=== PATIENT | female | born 2000 | race African-American/Black ===

== ENCOUNTER 2021-06-14 00:32 | Emergency (ER) | payer OTHER, SELFPAY ==
[2021-06-14 00:35] VITALS: BP 127/77; PULSE 102; RESP 16; TEMP 36.3; O2SAT 100; BMI 20.1
--- NOTE | 2021-06-14 00:49 | EX.ED.DYSGE1 ---
HPI History of Present Illness Chief Complaint: ETOH Intox Informant: patient Narrative Narrative: Patient's states she drank a lot tonight. It was mostly vodka. She threw up. She feels fine now. She no longer feels nauseated. She knows where she is at. She denies any fall or injury. She she has no complaint at this time. Denies anyone being inappropriate or touching her. She denies passing out. [facility] Medical History ADHD Home Medications methylphenidate HCl [Ritalin] 10 mg PO DAILY 06/14/21 [History Last Taken Unknown] Allergy/AdvReac Type Severity Reaction Status Date / Time No Known Allergies Allergy Verified 06/14/21 00:33 Social History Smoking Status: Never smoker ROS ROS ED Constitutional Constitutional ED: Denies chills or fever(s) Eyes Eyes: Denies blurry vision ENT ENT ED: Denies rhinorrhea or sore throat Cardiovascular Cardiovascular: Denies chest pain or palpitations Respiratory/Chest Respiratory/Chest: Denies cough or dyspnea Gastrointestinal Gastrointestinal: Reports nausea, vomiting and other Details: Patient had an episode of nausea and vomiting but feels fine now. ; Denies abdominal pain or diarrhea Genitourinary Genitourinary ED: Denies dysuria or hematuria Musculoskeletal Musculoskeletal: Denies myalgias Integumentary Denies rash Neurologic Neurologic: Denies headache(s) or weakness Psychiatric Psychiatric: Denies depression Endocrine Endocrinology: Denies polydipsia or polyuria Allergic/Immunologic Allergic/Immunologic ED: Denies urticaria EXAM Physical Exam Const Vital Signs: 06/14/21 00:35 06/14/21 01:13 Temperature 97.3 F L Temperature Source Temporal Pulse Rate 102 H Respiratory Rate 16 Blood Pressure 127/77 H 123/78 H Blood Pressure Mean 93 Pulse Ox 100 Oxygen Delivery Method Room Air Positive well nourished and well developed General Appearance ED: well developed and NAD HEENT HEENT Narrative: Patient has some dried emesis in her hair. No sign of trauma. Negative for trauma Eyes EOMs intact bilaterally Eyes Narrative: Mild nystagmus with lateral motion. Neck no lymphadenopathy General: Negative for tenderness Resp normal respiratory effort and clear to auscultation bilaterally Auscultation: Negative for rales, rhonchi or wheezes Cardio regular rate and regular rhythm GI normal to inspection, nondistended, normoactive bowel sounds, non-tender and non-distended GI Narrative: Abdomen is benign at this point. Palpation: soft Back/Spine no CVA tenderness Extremity normal to inspection General Extremety ED: Negative for edema or tenderness General Extremity: Negative for edema Neuro oriented x3 Sensorium / Orientation: alert Psych mental status grossly normal Attitude: No agitated Mood & Affect: Negative for depressed, anxious or tearful Skin no rashes or lesions noted MDM MDM MDM Narrative Medical decision making narrative: Patient is awake alert and asymptomatic. We will get her some Zofran. We will work to find a sober ride. Discharge Plan Triage Chief Complaint: ETOH Intox ED Provider: Lanre Sifuentes Dx/Rx/DC Orders Clinical Impression: Alcohol intoxication Instructions: ED Alcohol Intoxication Prescriptions: No Action methylphenidate HCl [Ritalin] 10 mg Tablet 10 mg PO DAILY RF: 0 Primary Care Provider: Care Physician,No Primary Referrals: NOT,DEFINED [NON-STAFF] - Activity Restrictions/Additional Instructions: [facility] at [facility] or your private physician as needed. Disposition Disposition: Home, Self Care Discharge Date/Time: 06/14/21 01:28
[2021-06-14] MEDS: Ondansetron ODT 4 MG Tablet PO (00:55)
[2021-06-14 01:13] VITALS: BP 123/78
== END 2021-06-14 01:28 | disposition home or self-care (01) ==
PROVIDERS: Emergency Provider Emergency Medicine
DX: F10.129 Alcohol abuse with intoxication, unspecified (principal); Y90.9 Presence of alcohol in blood, level not specified; F90.9 Attention-deficit hyperactivity disorder, unspecified type; Z79.899 Other long term (current) drug therapy
CPT/HCPCS: 99284

== ENCOUNTER → 2021-08-15 07:55 | Outpatient (CLI) | payer OTHER, SELFPAY | PROVIDERS: Visit Provider Family Medicine | DX: Z23 Encounter for immunization (principal) ==